=== PATIENT | female | born 1995 | race African-American/Black ===

== ENCOUNTER 2018-02-18 17:51 | Emergency (ER) | payer OTHER ==
[~2018-02-18] VITALS: Ht 162.6 cm; Wt 59.0 kg
[2018-02-18 18:15] LABS: URINE BILIRUBIN NEGATIVE (Negative); URINE BLOOD NEGATIVE (Negative); URINE CLARITY CLEAR; URINE COLOR YELLOW; URINE GLUCOSE-RANDOM* NEGATIVE (Negative); URINE KETONES NEGATIVE (Negative); URINE LEUKOCYTES NEGATIVE (Negative); URINE NITRITE NEGATIVE (Negative); URINE PROTEIN (DIPSTICK) NEGATIVE (Negative); URINE SPECIFIC GRAVITY 1.025 (1.005-1.035); URINE UROBILINOGEN 0.2 E.U./dl (0.2-1.0)
[2018-02-18] MEDS ORDERED: NAPROXEN375 MG PO (19:13)
[2018-02-18] MEDS ORDERED: DOXYCYCLINE 10100 MG PO (19:13)
[2018-02-18 19:55] VITALS: BP 110/70
[2018-02-21 15:11] LABS: NEISSERIA GONORRHEA-PCR Negative (Negative)
== END 2018-02-18 19:51 | disposition home or self-care (01) ==
LOC: ER 17:51
PROVIDERS: Emergency Medicine; Physician Assistant
DX: N73.9 Female pelvic inflammatory disease, unspecified (principal); N76.0 Acute vaginitis; J45.909 Unspecified asthma, uncomplicated; F17.210 Nicotine dependence, cigarettes, uncomplicated

== ENCOUNTER 2019-03-04 13:28 | Emergency (ER) | payer OTHER ==
[~2019-03-04] VITALS: Ht 162.6 cm; Wt 74.4 kg
[~2019-03-04 13:28] MED LIST: DOXYCYCLINE 10100 MG PO; NAPROXEN375 MG PO
[2019-03-04 13:45] LABS: URINE BILIRUBIN NEGATIVE (Negative); URINE BLOOD NEGATIVE (Negative); URINE CLARITY CLEAR; URINE COLOR YELLOW; URINE GLUCOSE-RANDOM* NEGATIVE (Negative); URINE KETONES NEGATIVE (Negative); URINE LEUKOCYTES-REFLEX TRACE (Negative); URINE NITRITE-REFLEX NEGATIVE (Negative); URINE PROTEIN (DIPSTICK) NEGATIVE (Negative)
[2019-03-04 14:28] LABS: ABSOLUTE NEUTROPHILS 7.4 thou/uL (1.4-8.2); BASOPHILS 1.3 % (0.0-2.0); HEMATOCRIT 34.9 % (37.0-47.0); HEMOGLOBIN 12.2 gm/dL (12.0-15.0); LYMPHOCYTES 22.8 % (24.0-44.0); MCH 27.2 pg (26.0-34.0); MCHC 34.8 g/dL (28.0-37.0); MCV 78.2 fL (80.0-100.0); MONOCYTES 6.9 % (1.0-8.0); PLATELET COUNT 424 thou/uL (150-400); RBC 4.46 mil/uL (4.20-5.00); RDW 14.2 % (10.5-14.5); WBC 11.2 thou/uL (4.0-11.0)
[2019-03-04 14:41] LABS: ALBUMIN 2.9 g/dL (3.4-5.0); CREATININE 0.6 mg/dL (0.6-1.0); POTASSIUM 3.4 mmol/L (3.5-5.1); TOTAL BILIRUBIN 0.4 mg/dL (<0.1-1.0); TOTAL PROTEIN 7.2 g/dL (6.4-8.2)
[2019-03-04] MEDS ORDERED: ZANTAC 150MG T150 MG PO (14:49)
[2019-03-04 14:50] VITALS: BP 111/69
[2019-03-04 14:51] LABS: CALCIUM 8.5 mg/dL (8.5-10.1)
== END 2019-03-04 14:50 | disposition home or self-care (01) ==
LOC: ER 13:28
PROVIDERS: Nurse Practitioner
DX: O26.892 Other specified pregnancy related conditions, second trimester (principal); R10.13 Epigastric pain; F17.210 Nicotine dependence, cigarettes, uncomplicated; J45.909 Unspecified asthma, uncomplicated; Z88.4 Allergy status to anesthetic agent; Z3A.18 18 weeks gestation of pregnancy